=== PATIENT | female | born 1990 | race Caucasian/White ===

== ENCOUNTER 2020-06-13 06:13 | Emergency (ER) | payer OTHER ==
[2020-06-13 07:14] LABS: Bilirubin Negative (Negative); Blood, Urine Negative (Negative); Clarity Clear (Clear); Glucose, Urine (Dipstick) Negative (Negative); Ketone, Urine Negative (Negative); Leukocyte Negative (Negative); Nitrite Negative (Negative); Protein, Urine (Dipstick) Negative (Neg-Trace); Urobilinogen 0.2 mg/dL (Less than 2)
[2020-06-13] MEDS ORDERED: Morphine 2 MG/ML SYRINGE ONE (07:22)
[2020-06-13] MEDS ORDERED: Sodium Chloride 0.9% 1,000 ML ONE (07:22)
[2020-06-13] MEDS ORDERED: Ondansetron PF 4 MG/2 ML Vial ONE (07:22)
[2020-06-13 07:26] LABS: #Basophils 0.1 thou/uL (0.0-0.2); #Eosinphils 0.3 thou/uL (0.0-0.7); #Lymphocytes 2.3 thou/uL (1.20-3.40); #Monocytes 0.6 thou/uL (0.11-0.59); #Neutrophils 9.2 thou/uL (1.40-6.50); %Basophils 0.7 % (0.0-1.0); %Eosinophils 2.4 % (0.0-10.0); %Lymphocytes 18.6 % (21.0-51.0); %Monocytes 4.5 % (0.0-10.0); %Neutrophils 73.8 % (42.0-75.0); Hemoglobin 12.6 g/dL (12.0-16.0); Mean Corpuscular HGB CONC 33.7 g/dL (32.0-36.0); Mean Corpuscular Hemoglobin 30.8 pg (27.0-31.0); Mean Corpuscular Volume 91.3 fL (78.0-98.0); Mean Platelet Volume 7.4 fL (7.4-10.4); Platelet Count 326 thou/uL (130-400); RBC Distribution Width 12.8 % (11.5-14.5); White Blood Cell (WBC) Count 12.4 thou/uL (4.8-10.8)
[2020-06-13 07:44] LABS: BHCG - Serum Negative (NEGATIVE); Pregs Control Background? CLEAR/WHITE (CLR/WHITE); Pregs Control Bar Appear? YES (CONTROL BAR)
[2020-06-13 07:46] LABS: ALT (SGPT) 10 U/L (8-55); AST (SGOT) 11 U/L (5-34); Alkaline Phosphatase 75 U/L (40-110); Anion Gap 15 mmol/L (10-20); BUN (Urea Nitrogen) 13 mg/dL (7.0-18.7); Bilirubin, Total 0.2 mg/dL (0.2-1.2); Calc. Creatinine Clearance 0 mL/min (70-130); Calcium 8.4 mg/dL (7.8-10.44); Carbon Dioxide 21 mmol/L (22-29); Chloride 107 mmol/L (98-107); Globulin 2.7 g/dL (2.4-3.5); Glucose 97 mg/dL (70-105); Lipase 11 U/L (8-78); Potassium 4.1 mmol/L (3.5-5.1); Protein, Total 6.7 g/dL (6.0-8.3); Sodium 139 mmol/L (136-145)
[2020-06-13] MEDS ORDERED: Morphine 4 MG/ML VIAL ONE (08:19)
[2020-06-13] MEDS ORDERED: Prochlorperazine 10 MG/2 ML VIAL ONE (08:33)
--- NOTE | 2020-06-13 09:05 | RAD ---
EXAM: CHEST TWO VIEWS 06/13/2020 9:03 AM HISTORY: Chest pain COMPARISON: None. FINDINGS: Lungs: No acute airspace consolidation. Heart: Normal in size and contour. Pulmonary Vessels: Normal. Costophrenic Angles: Clear. Pneumothorax: None. Osseous Structures: Intact. Additional Findings: None. IMPRESSION: No significant acute intrathoracic disease.
[2020-06-13] MEDS ORDERED: Iopamidol 370 76% 100 ML VIAL ONE (10:03)
--- NOTE | 2020-06-13 10:40 | CT ---
CT OF THE ABDOMEN AND PELVIS WITH IV CONTRAST INDICATION: Right upper quadrant abdominal pain with history of abdominal abscess COMPARISON: None FINDINGS: ABDOMEN: Lung bases: Clear Liver: No focal lesion. Gallbladder: Surgically absent Pancreas: Normal. Adrenal glands: Normal. Spleen: Normal. Kidneys and ureters: There is a 3 mm nonobstructing calculus within the superior pole left kidney. Ri ght kidney is normal-appearing. Vasculature: Normal. Lymph nodes:No lymphadenopathy. Free fluid in abdomen:No free fluid is evident. PELVIS: Small and large bowel: There is a mild amount retained stool within the colon. Appendix:Not seen Bladder: Normal. Rectal and perirectal soft tissues:Normal. Reproductive structures: There is a 1.6 cm left ovarian follicular cyst. Free fluid in pelvis: No free fluid is evident. Lymphadenopathy pelvis: No lymphadenopathy is evident. Osseous structures: No acute osseous abnormality. No destructive osteolytic or osteoblastic lesion i s identified. Soft tissues:Normal. IMPRESSION: 1. Left nephrolithiasis. 2. Mild amount of retained stool within the colon. 3. Left ovarian follicular cyst.
== END 2020-06-13 11:09 | disposition home or self-care (01) ==
LOC: MADERS 06:13
DX: R10.11 Right upper quadrant pain (principal); R11.2 Nausea with vomiting, unspecified; F17.210 Nicotine dependence, cigarettes, uncomplicated; D68.4 Acquired coagulation factor deficiency; D83.9 Common variable immunodeficiency, unspecified
CPT/HCPCS: 36415; 71046; 74177; 80053; 81003; 83605; 83690; 84484; 84703; 85025; 85379; 87040; 93005; 96374; 96375; 96376; J0780; J2270; J2405; J7050; Q9967

== ENCOUNTER 2021-03-18 18:50 | Emergency (ER) | payer OTHER, MEDICAID ==
[2021-03-18] MEDS ORDERED: Ketorolac Tromethamine 30 MG/ML VIAL ONE (20:44)
== END 2021-03-18 22:44 | disposition home or self-care (01) ==
LOC: MADERS 18:50
DX: S93.402A Sprain of unspecified ligament of left ankle, initial encounter (principal); S93.602A Unspecified sprain of left foot, initial encounter; F17.290 Nicotine dependence, other tobacco product, uncomplicated; D68.2 Hereditary deficiency of other clotting factors; X50.1XXA Overexertion from prolonged static or awkward postures, initial encounter
CPT/HCPCS: 96374; J1885

== ENCOUNTER 2022-01-15 10:10 | Emergency (ER) | payer OTHER | END 2022-01-15 11:23 | disposition home or self-care (01) | LOC: MADERS 10:10 | DX: L73.8 Other specified follicular disorders (principal); F17.290 Nicotine dependence, other tobacco product, uncomplicated; D83.9 Common variable immunodeficiency, unspecified | CPT/HCPCS: 99283 ==

== ENCOUNTER 2022-09-20 09:30 | Emergency (ER) | payer OTHER ==
[2022-09-20] MEDS ORDERED: Ketorolac Tromethamine 30 MG/ML VIAL ONE (10:06)
[2022-09-20] MEDS ORDERED: Ondansetron PF 4 MG/2 ML Vial ONE (10:06)
[2022-09-20] MEDS ORDERED: Sodium Chloride 0.9% 1,000 ML ONE (10:06)
[2022-09-20 10:42] LABS: #Basophils 0.1 thou/uL (0.0-0.2); #Monocytes 0.3 thou/uL (0.11-0.59); #Neutrophils 3.1 thou/uL (1.40-6.50); %Basophils 1.2 % (0.0-1.0); %Eosinophils 0.7 % (0.0-10.0); %Lymphocytes 22.5 % (21.0-51.0); %Monocytes 6.6 % (0.0-10.0); Anisocytosis SLIGHT = 6-15 cells (100X) (0-5/hpf); Hemoglobin 13.1 g/dL (12.0-16.0); Hypochromia SLIGHT = 6-15 cells (100X) (0-5/hpf); MDiff Complete? YES; Mean Corpuscular HGB CONC 32.5 g/dL (32.0-36.0); Mean Corpuscular Hemoglobin 31.2 pg (27.0-31.0); Mean Corpuscular Volume 96.2 fl (78.0-98.0); Mean Platelet Volume 9.8 fL (7.4-10.4); Platelet Count 236 10x3/uL (130-400); Platelet Morphology Comment Appears Adequate; RBC Distribution Width 13.9 % (11.5-14.5); Red Blood Cell (RBC) Count 4.18 mill/uL (4.20-5.40); White Blood Cell (WBC) Count 4.5 10x3/uL (4.8-10.8)
[2022-09-20 11:01] LABS: ALT (SGPT) 11 U/L (8-55); AST (SGOT) 15 U/L (5-34); Albumin 4.1 g/dL (3.5-5.0); Alkaline Phosphatase 85 U/L (40-110); Anion Gap 11 mmol/L (10-20); BUN (Urea Nitrogen) 7 mg/dL (7.0-18.7); Bilirubin, Total 0.2 mg/dL (0.2-1.2); Calc. Creatinine Clearance 0 mL/min (70-130); Calcium 8.6 mg/dL (7.8-10.44); Carbon Dioxide 24 mmol/L (22-29); Chloride 102 mmol/L (98-107); Estimated GFR 94; Globulin 3.3 g/dL (2.4-3.5); Glucose 94 mg/dL (70-105); Lipase 12 U/L (8-78); Magnesium 2.1 mg/dL (1.6-2.6); Potassium 3.2 mmol/L (3.5-5.1); Protein, Total 7.4 g/dL (6.0-8.3); Sodium 134 mmol/L (136-145)
[2022-09-20] MEDS ORDERED: Potassium Chloride 20 MEQ TAB ONE (11:08)
== END 2022-09-20 11:15 | disposition home or self-care (01) ==
LOC: MADERS 09:30
DX: E86.0 Dehydration (principal); F17.290 Nicotine dependence, other tobacco product, uncomplicated
CPT/HCPCS: 80053; 83690; 83735; 85025; 96361; 96374; 96375; J1885; J2405; J7050

== ENCOUNTER 2024-01-02 14:39 | Emergency (ER) | payer BC, OTHER ==
[2024-01-02] MEDS ORDERED: Ketorolac Tromethamine 10 MG TAB ONE (16:11)
== END 2024-01-02 16:19 | disposition home or self-care (01) ==
LOC: MADERS 14:39
DX: S93.602A Unspecified sprain of left foot, initial encounter (principal); F17.200 Nicotine dependence, unspecified, uncomplicated; X50.0XXA Overexertion from strenuous movement or load, initial encounter

== ENCOUNTER 2024-07-01 19:35 | Emergency (ER) | payer OTHER ==
[~2024-07-01 19:35] MED LIST: Iopamidol 370 76% 100 ML VIAL ONE
[2024-07-01] MEDS ORDERED: Morphine 4 MG/ML VIAL ONE ×2 (20:11→22:28)
[2024-07-01] MEDS ORDERED: Sodium Chloride 0.9% 1,000 ML ONE ×2 (20:11→21:41)
[2024-07-01] MEDS ORDERED: Ondansetron PF 4 MG/2 ML Vial ONE (20:11)
[2024-07-01 20:15] LABS: Bilirubin Negative (Negative); Blood, Urine Negative (Negative); Clarity Clear (Clear); Glucose, Urine (Dipstick) Negative (Negative); Ketone, Urine Negative (Negative); Leukocyte Negative (Negative); Nitrite Negative (Negative); Protein, Urine (Dipstick) Negative (Neg-Trace); Urobilinogen 0.2 mg/dL (Less than 2); pH, Urine 6.5 (5.0-9.0)
[2024-07-01 20:17] LABS: CAUTI Indications for Culture Pregnancy; Pregnancy Test - Urine (BHCG) Negative (Negative); Pregu Control Background? CLEAR/WHITE (CLR/WHITE); Pregu Control Bar Appear? YES (CONTROL BAR); RBC/HPF None Seen HPF (0-3); Urine Culture Reflex Yes Yes; WBC/HPF None Seen HPF (0-3)
[2024-07-01 20:36] LABS: ALT (SGPT) 21 U/L (8-55); AST (SGOT) 15 U/L (5-34); Albumin 3.7 g/dL (3.5-5.0); Alkaline Phosphatase 92 U/L (40-110); Anion Gap 15 mmol/L (10-20); BUN (Urea Nitrogen) 6 mg/dL (7.0-18.7); Bilirubin, Total 0.4 mg/dL (0.2-1.2); Calc. Creatinine Clearance 0 mL/min (70-130); Calcium 8.6 mg/dL (7.8-10.44); Carbon Dioxide 23 mmol/L (22-29); Chloride 100 mmol/L (98-107); Estimated GFR 114; Globulin 3.9 g/dL (2.4-3.5); Glucose 95 mg/dL (70-105); Lipase 13 U/L (8-78); Potassium 3.1 mmol/L (3.5-5.1); Protein, Total 7.6 g/dL (6.0-8.3); Sodium 135 mmol/L (136-145)
[2024-07-01 20:44] LABS: Hematocrit 35.9 % (36.0-47.0); Hemoglobin 12.5 g/dL (12.0-16.0); Mean Corpuscular HGB CONC 34.8 g/dL (32.0-36.0); Mean Corpuscular Hemoglobin 34.8 pg (27.0-31.0); Mean Corpuscular Volume 100.1 fl (78.0-98.0); Mean Platelet Volume 7.5 fL (7.4-10.4); Platelet Count 409 10x3/uL (130-400); RBC Distribution Width 12.9 % (11.5-14.5); Red Blood Cell (RBC) Count 3.59 mill/uL (4.20-5.40); White Blood Cell (WBC) Count 11.4 10x3/uL (4.8-10.8)
[2024-07-01 20:45] LABS: Anisocytosis SLIGHT = 6-15 cells (100X) (0-5/hpf); Eosinophils 1 % (0-10); Lymphocytes 26 % (21-51); MDiff Complete? YES; Macrocytosis SLIGHT = 6-15 cells (100X) (0-5/hpf); Monocytes 6 % (0-10); Neutrophil 67 % (42-75); Platelet Adequacy Comment Appears Adequate
[2024-07-01] MEDS ORDERED: Piperacillin/Tazobactam 3.375 GM VIAL ONE (21:19)
[2024-07-01] MEDS ORDERED: Sodium Chloride 0.9% 100 ML ONE (21:20)
== END 2024-07-01 22:58 | disposition short-term general hospital (02) ==
LOC: MADERS 19:35
DX: K35.80 Unspecified acute appendicitis (principal); E87.6 Hypokalemia; F17.210 Nicotine dependence, cigarettes, uncomplicated
CPT/HCPCS: 74177; 80053; 81001; 81025; 83690; 85025; 87086; 96361; 96374; 96375; 96376; J2270; J2405; J2543; J7030; Q9967

== ENCOUNTER 2025-03-24 07:36 | Emergency (ER) | payer OTHER ==
[2025-03-24] MEDS ORDERED: Dicyclomine 10 MG CAP ONE (08:17)
[2025-03-24] MEDS ORDERED: Diphenoxylate HCl/Atropine Tablet ONE ×2 (08:18→08:42)
== END 2025-03-24 09:30 | disposition home or self-care (01) ==
LOC: MADERS 07:36
DX: K52.9 Noninfective gastroenteritis and colitis, unspecified (principal); F17.210 Nicotine dependence, cigarettes, uncomplicated
CPT/HCPCS: 99284; Q0162